=== PATIENT | female | born 1960 | race Caucasian/White ===

== ENCOUNTER → 2016-05-18 16:27 | Outpatient (CLI) | payer BC | END | disposition home or self-care (01) | LOC: D.MAMMO 10:15 | DX: Z12.31 Encounter for screening mammogram for malignant neoplasm of breast (principal) ==

== ENCOUNTER → 2017-07-20 20:26 | Outpatient (CLI) | payer BC | END | disposition home or self-care (01) | LOC: D.MAMMO 16:00 | DX: Z12.31 Encounter for screening mammogram for malignant neoplasm of breast (principal) ==

== ENCOUNTER 2018-11-02 09:00 | Outpatient (CLI) | payer BC | END 2018-11-02 10:00 | disposition home or self-care (01) | LOC: D.MAMMO 09:00 | PROVIDERS: ATTEND Family Medicine | DX: Z12.31 Encounter for screening mammogram for malignant neoplasm of breast (principal) ==

== ENCOUNTER → 2019-03-01 11:12 | Outpatient (CLI) | payer BC | END | disposition home or self-care (01) | LOC: D.HCCARDIO 11:12 | PROVIDERS: ATTEND Internal Medicine Cardiovascular Disease | DX: R94.31 Abnormal electrocardiogram [ECG] [EKG] (principal); I10 Essential (primary) hypertension ==

== ENCOUNTER 2019-03-28 10:59 | Outpatient (CLI) | payer BC ==
[~2019-03-28] VITALS: Ht 171.4 cm; Wt 130.9 kg
--- NOTE | ~2019-03-28 | HEMODYNAMI ---
PATIENT:ROGELIO VALLES MEDICAL RECORD: [id number] : 58 LOCATION:[facility] ADMISSION DATE: 03/28/19 Generatedon:03/28/201913:50 Patient name: ROGELIO VALLES Patient #: [id number] SSN: [id number] : 1960 Date of study: 03/28/2019 Page: Of Hemodynamic Procedure Report Patient Data Patient Demographics Procedure consent was obtained First Name: ROGELIO Gender: Female Last Name: REENA : 1960 Middle Initial: GREMAN Age: 59 year(s) Patient #: [id number] Race: SSN: [id number] Additional ID: [id number] Contact details Address: [place] [address] State: [place] City: [place] Zip code: [address] Past Medical History Performed procedures and imaging results Date Procedure Procedure Results Comments 03/01/2019 Stress testing Positive->Intermediate with SPECT MPI risk Allergies: No known allergies Admission Admission Data Admission Date: 03/28/2019 Admission Time: 10:59 Arrival Date: 03/28/2019 Arrival Time: 0:00 Admit Source: Other Insurance Payor: Private health insurance [facility] #: [id number] Height (in.): 67.5 BSA: 2.38 (m2) Height (cm.): 171.45 BMI: 44.53 (kg/m2) Weight (lbs.): 288.59 Weight (kg.): 130.9 Lab Results Lab Result Date: 03/28/2019 Lab Result Time: 0:00 Biochemistry Name Units Result Min Max BUN mg/dl 14 --(--*-)-- 7 18 Creatinine mg/dl 1 --(--*-)-- 0.6 1.3 eGFR ml/min 60 *-(----)-- 90 120 NONAFRICAN CBC Name Units Result Min Max Hematocrit % 35.7 *-(----)-- 42 54 Hemoglobin g/dl 12.1 *-(----)-- 13.5 17.5 Procedure Procedure Types Cath Procedure Diagnostic Procedure [facility] w/Coronaries Procedure Description Procedure Date Procedure Date: 03/28/2019 Procedure Start Time: 13:32 Procedure End Time: 13:49 Procedure Staff Name Function Usama Etienne MD Performing Physician Diana Kennedy RN Nurse Savanah Horne RT Scrub Nancy Wallace RT Monitor Indication Abnormal nuclear perfusion test Procedure Data Cath Procedure Fluoroscopy Diagnostic fluoroscopy Total fluoroscopy Time: 1.9 time: 1.9 min min Diagnostic fluoroscopy Total fluoroscopy dose: 672 dose: 672 mGy mGy Contrast Material Contrast Material Type Amount (ml) Isovue 370 61 Entry Location Entry Primary Successful Side Size Upsize Upsize Entry Closure Succes sful Closure Location (Fr) 1 (Fr) 2 (Fr) Remarks Device Remarks Radial Right 6 Fr Exoseal artery Short Estimated blood loss: 5 ml Diagnostic catheters Device Type Used For End Catheter Placement DIAGNOSTIC [place] 110cm 5 Procedure Fr catheter ([id number]) Procedure Complications No complications Procedure Medications Medication Administration Route Dosage 0.9% NaCl I.V. 100 ml/hr Oxygen etCO2 Nasal cannula 2 l/min Lidocaine 2% added to field 20 Heparin Flush Bag added to field 2 bags (1000units/500ml NS) Radial Cocktail added to field 1 syringe (Verapamil 2mg/Nitro 400mcg/Heparin 1500units) Versed I.V. 2 mg Fentanyl I.V. 50 mcg Fentanyl I.V. 50 mcg Hemodynamics Rest BSA: 2.38 (m2) HGB: 12.1 (g/dl) O2 Consumption: Estimated: 220.24 (ml/min) O2 Co nsumption indexed: Estimated:92.54 (ml/min/m) Heart Rate: 64 (bpm) Pressure Samples Time Site Value (mmHg) Purpose Heart Use Rate(bpm) 13:35 LV 152/9,36 Snapshot 74 Gradients Valve Time Site Site Mean SEP/DFP Peak To Heart Use 1 2 (mmHg) (sec/min) Peak Rate (mmHg) (bpm) Aortic 13:36 LV AO 76 Snapshots Pre Cath Intra NCS Post Cath Vital Signs Time Heart Resp SPO2 etCO2 NIBP (mmHg) Rhythm Pain Sedation Rate (ipm) (%) (mmHg) Status Level (bpm) 13:08:58 75 15 97 44.2 154/80(102) NSR 0 (11) 10(A) , No pain 13:13:30 66 17 97 45.7 142/76(90) NSR 0 (11) 10(A) , No pain 13:17:58 63 18 98 20.9 131/70(90) NSR 0 (11) 10(A) , No pain 13:22:25 64 12 96 52.5 127/71(86) NSR 0 (11) 10(A) , No pain 13:26:49 64 13 98 52.5 127/74(100) NSR 0 (11) 10(A) , No pain 13:31:13 67 14 97 49.5 135/75(98) NSR 0 (11) 10(A) , No pain 13:35:39 65 16 98 46.5 136/76(94) NSR 0 (11) 10(A) , No pain 13:40:10 70 16 95 47.2 137/69(104) NSR 0 (11) 10(A) , No pain 13:44:40 67 17 94 45.7 137/70(101) NSR 0 (11) 10(A) , No pain 13:49:11 65 15 96 45 133/70(94) NSR 0 (11) 10(A) , No pain Medications Time Medication Route Dose Verified Delivered Reason Notes E ffectiveness by by 13:07:45 0.9% NaCl I.V. 100 Usama Diana used for ml/hr Lowell Kennedy ct scan special procedures technologist 13:07:51 Oxygen etCO2 2 l/min Usama Diana used for Nasal Lowell Kennedy procedure cannula RN 13:07:56 Lidocaine 2% added 20ml Usama Usama for local to vial Lowell Etienne MD anesthetic field 13:08:01 Heparin Flush added 2 bags Usama Usama used for Bag to Lowell Etienne MD procedure (1000units/500ml field NS) 13:08:06 Radial Cocktail added 1 Usama Usama used for (Verapamil to syringe Lowell Etienne MD procedure 2mg/Nitro field 400mcg/Heparin 1500units) 13:31:30 Versed I.V. 2 mg Usama Diana for Lowell Kennedy sedation RN 13:31:40 Fentanyl I.V. 50 mcg Usama Diana for Lowell Kennedy sedation RN 13:37:48 Fentanyl I.V. 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 12:54:11 Savanah Horne RT(R) (CV) sent for patient. Start room use. 12:54:13 Time tracking: Regular hours (M-F 7:00 - 5:00) 12:54:18 Plan of Care:Hemodynamics will remain stable., Cardiac rhythm will remain stable., Comfort level will be maintained., Respiratory function will remain adequate., Patient/ family verbilizes understanding of procedure., Procedure tolerated without complication., Recovers from procedure without complications.. 12:54:51 Stress Test: yes; abnormal ANDTERIOR ADN LATERAL SEGMENTS 12:55:04 Lab results completed and on chart. 12:56:54 Risk of Mortality: 0.1 12:56:57 Risk of blood transfusion: 0.2 12:57:01 Risk of JANINE: .3 12:57:03 Alarms reviewed by R. N. 12:57:04 Sharps counted by scrub and verified by R.N. 12:57:15 Patient received from Pre/Post Procedure Room to CCL 1 Alert and oriented. Tansferred to table in Supine position. 12:57:17 Warm blankets applied, and eliecer hugger turned on for patient comfort. 12:57:18 Correct patient and procedure confirmed by team. 12:57:20 ECG and BP/O2 sat monitors applied to patient. 12:57:28 Signed procedure consent form obtained from patient. 12:58:03 Lab Result : Creatinine 1 mg/dl 12:58:03 Lab Result : BUN 14 mg/dl 12:58:03 Lab Result : Hemoglobin 12.1 g/dl 12:58:03 Lab Result : eGFR NONAFRICAN 60 ml/min 12:58:03 Lab Result : Hematocrit 35.7 % 12:58:21 H&P Date Dictated: 03/15/2019 Within 30 days and on chart.. 12:58:23 Pre-procedure instructions explained to patient. 12:58:24 Pre-op teaching completed and patient verbalized understanding. 12:58:26 Family in waiting room. 12:58:28 Patient NPO since Midnight. 12:58:36 Patient allergic to No known allergies 13:07:32 Vital chart was started 13:07:45 0.9% NaCl 100 ml/hr I.V. was administered by Diana Kennedy RN; used for procedure; Verbal order read back and verified. 13:07:51 Oxygen 2 l/min etCO2 Nasal cannula was administered by Dinaa Kennedy RN; used for procedure; Verbal order read back and verified. 13:07:56 Lidocaine 2% 20ml vial added to field was administered by Usama Etienne MD; for local anesthetic; Verbal order read back and verified. 13:08:01 Heparin Flush Bag (1000units/500ml NS) 2 bags added to field was administered by Usama Etienne MD; used for procedure; Verbal order read back and verified. 13:08:06 Radial Cocktail (Verapamil 2mg/Nitro 400mcg/Heparin 1500units) 1 syringe added to field was administered by Usama Etienne MD; used for procedure; Verbal order read back and verified. 13:16:46 Is the patient allergic to Iodine/contrast media? No. 13:16:48 Was the patient premedicated? Yes 13:16:52 Is patient on blood thinner?No 13:16:58 Patient diabetic? Yes. 13:16:59 If diabetic: On Metformin? Yes 13:17:07 If on Metformin: Last Dose? 03/27/2019 13:17:10 Patient not . Patient is over age 55. 13:17:11 ----Pre-sedation anethsthesia assessment.---- 13:17:14 Previous problem with sedation/anesthesia? No ? 13:17:16 Snore? Yes 13:17:17 Sleep apnea? Yes 13:17:19 Deviated septum? No 13:17:20 Opens mouth fully? Yes 13:17:21 Sticks out tongue? Yes 13:17:23 Airway obstruction? No ? 13:17:26 Dentures? No ? 13:17:32 Pre procedure: right dorsailis pedis pulse 2+ Normal; easily identifiable; not easily obliterated 13:17:35 Modified Micha's test Ulnar < 7 seconds 13:17:39 Patient pain scale 0/10 ?. 13:17:53 IV patent on arrival in left antecubital with 0.9% NaCl at [facility]. 13:18:00 Right Radial & Right Groin area was prepped with chlora-prep and draped in sterile fashion 13:18:18 Rhythm: sinus rhythm 13:18:21 Baseline sample Acquired. 13:18:22 Full Disclosure recording started 13:18:25 Use device set Radial Dx or PCI 13:18:26 ACIST Syringe (62128) opened to sterile field. 13:18:27 Medline Cath Pack ([id number]) opened to sterile field. 13:18:27 Bag Decanter (2002S) opened to sterile field. 13:18:28 ACIST Hand Control (17016) opened to sterile field. 13:18:29 ACIST Manifold (49760) opened to sterile field. 13:18:30 MBraadflyer Wrist Support ([id number]) opened to sterile field. 13:18:31 NEEDLE Cook 21G 4cm Radial ([id number]) opened to sterile field. 13:18:32 EMERALD Guide Wire (616-369) opened to sterile field. 13:18:33 SHEATH 6FR RAIN ([id number]) opened to sterile field. 13:30:58 --------ALL STOP TIME OUT------ 13:30:59 Final Timeout: patient, procedure, and site verified with staff and physician. All members of the team are in agreement. 13:31:01 Right Radial & Right Groin site verified by team. 13:31:05 Fire Safety Assessment: A--An alcohol-based skin anteseptic being used preoperatively., C--Open oxygen or nitrous oxide is being used., D--An ESU, laser, or fiber-optic light is being used. 13:31:11 Physical assessment completed. ASA score P 2 - A patient with mild systemic disease as per Usama Etienne MD. 13:31:15 2) 60-89 Mildly reduced kidney function, and other findings (as for stage 1) point to kidney disease. 13:31:19 Maximum allowable contrast dose (3.7 X eGFR X 0.75)167 ml. 13:31:24 Sedation plan: IV Moderate Sedation Medication:Versed, Fentanyl 13:31:27 Procedure started. 13:31:30 Versed 2 mg I.V. was administered by Diana Kennedy RN; for sedation; Verbal order read back and verified. 13:31:40 Fentanyl 50 mcg I.V. was administered by Diana Kennedy RN; for sedation; Verbal order read back and verified. 13:32:03 Local anesthetic to right radial artery with Lidocaine 2% by Usama Etienne MD.INITIAL ACCESS ONLY 13:33:32 A 6 Fr Short sheath was inserted into the Right Radial artery 13:34:25 A DIAGNOSTIC [place] 110cm 5 Fr catheter ([id number]) was advanced over the wire and used for Procedure. 13:34:35 Injector settings: Ml/sec: 5, Volume: 15, 13:35:28 LV gram done using BROTHERS 13:35:30 LV hemodynamics recorded. 13:35:41 EF : 55 % 13:36:27 LCA angiography performed. 13:37:48 Fentanyl 50 mcg I.V. was administered by Diana Kennedy RN; for sedation; Verbal order read back and verified. 13:38:24 RCA angiography performed. 13:38:50 Catheter removed. 13:39:33 TR BAND Large ([id number]) opened to sterile field. 13:39:44 Sheath removed intact; hemostasis achieved with Exoseal to the Right Radial artery. 13:39:47 Procedure ended.(Physican Out) 13:39:59 Fluoroscopy time 01.90 minutes. 13:40:03 Fluoroscopy dose: 672 mGy 13:40:03 Flurop Dose total: 672 13:40:09 Dose Area Product 89773 mGy/cm. 13:40:15 Contrast amount:Isovue 370 61ml. 13:40:20 Maximum allowable dose exceeded? No. 13:40:21 Sharps counted by scrub and verified by R.N. 13:48:05 Alexis band inflated with 10cc of air. 13:48:09 Post Procedure Pulses reassessed and unchanged 13:48:12 Post procedure: right dorsailis pedis pulse 2+ Normal; easily identifiable; not easily obliterated. 13:48:15 Post-procedure physical assessment completed. ASA score P 2 - A patient with mild systemic disease as per Usama Etienne MD. 13:48:18 Post procedure rhythm: unchanged. 13:48:21 Estimated blood loss: 5 ml 13:48:22 Post procedure instruction explained to patient.Patient verbalizes understanding. 13:48:23 Patient needs reinforcement of post procedure teaching. 13:49:10 Procedure and supply charges have been captured, reviewed, submitted and are correct. 13:49:14 Procedure Complication : No complications 13:49:18 Vital chart was stopped 13:49:20 [facility] Findings: mild to moderate CAD (<70%) 13:49:21 Operative report dictated upon procedure completion. 13:49:21 See physician's report for complete and final results. 13:49:23 Report given to Pre/Post Procedure Room. 13:49:26 Patient transfered to Pre/Post Procedure Room with Stretcher. 13:49:28 Procedure ended. 13:49:28 Full Disclosure recording stopped 13:49:40 End room use (Document Last) 13:49:59 End room use (Document Last) 13:50:20 End room use (Document Last) Device Usage Item Name Manufacture Quantity Catalog Hospital Part Current Minima l Lot# / Number Charge Number Stock Stock Serial# Code ACIST Acist 1 50583 [id number] 20 Syringe Medical (80408) Systems Inc Medline Medline 1 [id number] 077787 87839 597829 5 Cath Pack ([id number]) Bag Microtek 1 506852 30928 813021 5 Decanter Medical Inc. () ACIST Hand Acist 1 01895 988526 536275 231111 5 Control Medical (17415) Systems Inc ACIST Acist 1 49497 407479 605175 803234 5 Manifold Medical (26796) Systems Inc MBrace Advanced 1 140-0250-00 658538 76809 392519 5 Wrist Vascular Support Dynamics ([id number]) NEEDLE Cook Nano Medical 1 [id number] 971854 046987 380462 5 21G 4cm Radial (R11656) EMERALD Cardinal 1 153-859 662054 835667 913317 5 Guide Wire [facility] (339-950) SHEATH 6FR Cardinal 1 [id number] 955730 7633788 699817 5 [facility] (8387831) DIAGNOSTIC Terumo 1 20-6960 600473 428368 662406 5 [place] 110cm 5 Fr catheter (092792) TR BAND Terumo 1 [id number] 687813 897699 400182 40 Large ([id number]) Signature Audit Follett Stage Time Signature Unsigned Intra-Procedure 03/28/2019 Nancy Wallace 1:49:59 PM RT(R) Intra-Procedure 03/28/2019 Diana Kennedy 1:50:20 PM RN Intra-Procedure 03/28/2019 Usama Etienne MD 1:50:40 PM [facility] [address] [id number]
[2019-03-28] MEDS ORDERED: ZYRTEC10 MG PO (11:21)
[2019-03-28] MEDS ORDERED: ZYLOPRIM300 MG PO (11:22)
[2019-03-28] MEDS ORDERED: LIPITOR40 MG PO (11:23)
[2019-03-28] MEDS ORDERED: CELEXA20 MG PO (11:23)
[2019-03-28] MEDS ORDERED: BAYER CHEWABLE81 MG PO (11:23)
[2019-03-28] MEDS ORDERED: TOPROL XL50 MG PO (11:24)
[2019-03-28] MEDS ORDERED: GLUCOPHAGE500 MG PO (11:24)
[2019-03-28] MEDS ORDERED: NEURONTIN600 MG PO (11:24)
[2019-03-28] MEDS ORDERED: KLOR-CON 1010 MEQ PO (11:25)
[2019-03-28] MEDS ORDERED: PROTONIX40 MG PO (11:25)
[2019-03-28] MEDS ORDERED: PREMARIN0.3 MG PO (11:25)
[2019-03-28] MEDS ORDERED: TRIAMTERENE-HC1 EAC6 PO (11:26)
[2019-03-28] MEDS ORDERED: ULTRAM50 MG PO (11:26)
[2019-03-28 11:28] VITALS: BP 147/69; Ht 171.4 cm; Wt 130.9 kg
[2019-03-28 12:17] LABS: BASOPHILS 0.3 % (0-2); EOSINOPHILS 4.3 % (0-7); HEMATOCRIT 35.7 % (36.0-48.0); HEMOGLOBIN 12.1 g/dL (12-16); IMMATURE GRANULOCYTES 0.3 % (0-5); LYMPHOCYTES 20.9 % (15-50); MCH 33.2 pg (26.0-34.0); MCHC 33.9 g/dL (31.0-37.0); MCV 97.8 fL (80.0-100.0); MEAN PLATELET VOLUME 9.4 fL (7.4-10.4); NEUTROPHILS 64.2 % (40-80); PLATELET COUNT 236 10x3/uL (130-400); RBC 3.65 10x6/uL (4.00-5.40); RDW 15.1 % (11.5-14.5); WBC 6.7 10x3/uL (4.8-10.8)
[2019-03-28 12:20] LABS: ANION GAP 11.3 mmol/L (8-16); CALCIUM 8.6 mg/dL (8.5-10.1); CARBON DIOXIDE 29.5 mmol/L (21.0-32.0); POTASSIUM - SERUM 3.8 mmol/L (3.5-5.1)
--- NOTE | 2019-03-28 14:00 | NUR ---
PT RECEIVED VIA STRETCHER FROM [facility] FOR [facility]OVERY. PT AWAKE BUT DROWSY. PT DENIES PAIN OR DISCOMFORT. IV PATENT INFUSING VIA L HAND PER ORDERS. PT PLACED ON CARDIAC MONITORS AND O2 VIA NC AT 2L. HR NSR RATE 64, BP 112/47, RR 11, SAT 97. R WRIST W TR BAND AND IMMOBILIZER, NO BLEEDING OR S/S HEMATOMA NOTED. ARM PINK AND WARM, CAP REFILL BRISK. PT INSTRUCTED NOT TO USE ARM SHE VERBALIZED UNDERSTANDING. DR LEOS WAS IN ROOM BEFORE PT ARRIVAL AND SPOKE WITH FAMILY REGARDING PROCEDURE RESULTS AND PLAN OF CARE. CALL LIGHT IN REACH.
--- NOTE | 2019-03-28 14:15 | NUR ---
PT RESTING COMFORTABLY W EYES CLOSED. PT GIVEN SIPS OF DT SPRITE PER REQUEST. TR BAND AND IMMOBILIZER IN PLACE, NO BLEEDING OR S/S HEMATOMA NOTED. CAP REFILL BRISK. VSS. FAMILY AT BEDSIDE, CALL LIGHT IN REACH
--- NOTE | 2019-03-28 14:45 | NUR ---
PT RESTING W/O COMPLAINTS. 5CC AIR REMOVED FROM TR BAND, NO BLEEDING OR S/S HEMATOMA NOTED. HR 63, BP 114/61, RR 16. O2 REMOVED, SAT 94 ON ROOM AIR. CALL LIGHT IN REACH, NEPHEW REMAINS AT BEDSIDE.
--- NOTE | 2019-03-28 15:01 | NUR ---
PT CONTINUES RESTING, NO CHANGE IN CONDITION. NO BLEEDING OR S/S HEMATOMA TO R WRIST, DRESSING CDI. VSS. CAP REFILL BRISK. CALL LIGHT IN REACH. SANDWICH OFFERED, PT REFUSED AT THIS TIME.
--- NOTE | 2019-03-28 15:18 | NUR ---
3 ADD'L CC AIR REMOVED FROM TR BAND, NO BLEEDING OR S/S HEMATOMA NOTED. VSS. PT DENIES PAIN OR NEEDS AT THIS TIME. CALL LIGHT REMAINS IN REACH
--- NOTE | 2019-03-28 15:35 | NUR ---
DISCHARGE INSTRUCTIONS REVIEWED W PT AND NEPHEW, BOTH VERBALIZED UNDERSTANDING. IV REMOVED W CATH INTACT, MONITORS REMOVED AND PT UP TO DRESS FOR DISCHARGE. 1540 REMAINING AIR AND TR BAND REMOVED W/O BLEEDING OR S/S HEMATOMA NOTED. 2X2 AND TEGADERM DRESSING APPLIED. IMMOBILIZER REAPPLIED.
--- NOTE | 2019-03-28 15:45 | NUR ---
PT DISCHARGED VIA TO [facility] WAITING IN PRIVATE VEHICLE. PT HAD ALL BELONGINGS AND DISCHARGE PAPERWORK.
== END 2019-03-28 15:45 | disposition home or self-care (01) ==
LOC: D.CATH 10:59
PROVIDERS: ATTEND Internal Medicine Cardiovascular Disease
DX: I20.9 Angina pectoris, unspecified (principal); R94.31 Abnormal electrocardiogram [ECG] [EKG]; R06.00 Dyspnea, unspecified

== ENCOUNTER 2020-08-21 13:00 | Outpatient (CLI) | payer BC ==
[2019-03-28 11:28] VITALS: BMI 44.5
[~2020-08-21 13:00] MED LIST: BAYER CHEWABLE81 MG PO; CELEXA20 MG PO; GLUCOPHAGE500 MG PO; KLOR-CON 1010 MEQ PO; LIPITOR40 MG PO; NEURONTIN600 MG PO; PREMARIN0.3 MG PO; PROTONIX40 MG PO; TOPROL XL50 MG PO; TRIAMTERENE-HC1 EAC6 PO; ULTRAM50 MG PO; ZYLOPRIM300 MG PO; ZYRTEC10 MG PO
== END 2020-08-21 23:59 | disposition home or self-care (01) ==
LOC: D.MAMMO 13:00
PROVIDERS: ATTEND Family Medicine
DX: Z12.31 Encounter for screening mammogram for malignant neoplasm of breast (principal)